=== PATIENT | male | born 1965 | race Caucasian/White ===

== ENCOUNTER 2019-08-08 08:03 | Inpatient (IN) ==
[2019-08-08 08:52] LABS: Alanine Aminotransferase 35 U/L (12-78); Albumin Level 3.4 gm/dl (3.4-5.0); Aspartate Aminotransferase 33 U/L (15-37); BUN Creatinine Ratio 12.5 (10-20); Blood Urea Nitrogen 12 mg/dl (7-18); Calcium 9.2 mg/dl (8.5-10.1); Carbon Dioxide 24 mmol/L (21-32); Chloride 110 mmol/L (98-107); Est GFR (African American) 101.6; Est GFR (Non-African American) 87.7; Glucose 106 mg/dl (70-99); Magnesium 1.9 mg/dl (1.8-2.4); Potassium 3.7 mmol/L (3.5-5.1); Sodium 141 mmol/L (136-145)
[2019-08-08 08:58] LABS: INR 1.2 (0.9-1.1); Prothrombin Time 11.8 Seconds (9.0-12.0)
[2019-08-08 09:03] LABS: Albumin Globulin Ratio 0.9 (0.9-2); Alkaline Phosphatase 120 U/L (45-117); Bilirubin,Total 1.7 mg/dl (0.2-1); Total Protein 7.4 gm/dl (6.4-8.2); Troponin I < 0.015 ng/ml (0-0.045)
--- NOTE | 2019-08-08 09:05 | XRay Report ---
XR chest 1V portable CLINICAL HISTORY: 53 years-old Male presenting with weakness. TECHNIQUE: Portable upright AP view of the chest was obtained. COMPARISON: None. FINDINGS: Cardiomediastinal silhouette normal. No focal opacity. No large effusion or pneumothorax. Osseous str uctures normal. Upper abdomen normal. IMPRESSION: 1. No acute cardiopulmonary disease. ACT 112: Negative or not required by law. Electronically signed by: Jaylon Mccurdy M.D. 08/08/2019 9:04 AM
[2019-08-08 09:28] LABS: Basophils # (auto) 0.03 K/uL (0-0.2); Basophils % (auto) 0.9 %; Eosinophils # (auto) 0.34 K/uL (0-0.5); Eosinophils % (auto) 10.2 %; Hematocrit (blood only) 37.6 % (42-52); Hemoglobin 13.2 g/dL (14.0-18.0); Immature Granulocytes # (auto) 0.01 K/uL (0.00-0.02); Immature Granulocytes % (auto) 0.3 %; Lymphocytes # (auto) 0.92 K/uL (1.2-3.4); Lymphocytes % (auto) 27.5 %; Mean Corpuscular Hemoglobin 33.2 pg (25-34); Mean Corpuscular Hgb Conc 35.1 g/dL (32-36); Mean Corpuscular Volume 94.7 fL (80-100); Mean Platelet Volume 11.3 fL (7.4-10.4); Monocytes # (auto) 0.45 K/uL (0.11-0.59); Monocytes % (auto) 13.5 %; Neutrophils # (auto) 1.59 K/uL (1.4-6.5); Neutrophils % (auto) 47.6 %; Platelet Count 37 K/uL (130-400); Platelet Estimate SIGNIFIC DECREASED (Normal); RBC Morphology Unremarkable; RDW Coefficient of Variation 14.6 % (11.5-14.5); RDW Standard Deviation 50.5 fL (36.4-46.3); Red Blood Count 3.97 M/uL (4.7-6.1); White Blood Count 3.34 K/uL (4.8-10.8)
--- NOTE | 2019-08-08 09:28 | CT Scan Report ---
CT SCAN OF THE BRAIN WITHOUT IV CONTRAST CLINICAL HISTORY: Slurred speech. Encephalopathy. COMPARISON STUDY: No priors. TECHNIQUE: Unenhanced axial CT scan of the brain is performed from the vertex to the skull base. A d ose lowering technique was utilized adhering to the principles of ALARA. CT DOSE: 690.05 mGycm FINDINGS: Brain parenchyma: There is minimal microangiopathic change. There is no hemorrhage, mass effect, or e vidence of acute territorial ischemia by CT criteria. Bhandari-white matter differentiation is preserved. No extra-axial fluid collection is seen. Mineralization is noted in the basal ganglia. Ventricles, sulci, cisterns: Normal in configuration. Intracranial vasculature: There is atherosclerotic calcification of the cavernous carotid and vertebr al arteries. Calvarium: Unremarkable. Sinuses and mastoids: The visualized paranasal sinuses are clear. The mastoid air cells are well pneu matized. Orbits: The bony orbits are grossly intact. IMPRESSION: There is no hemorrhage, mass effect, or evidence of acute territorial ischemia by CT jose bronson. ACT 112: Negative or not required by law. Electronically signed by: Delvis Aguilar M.D. 08/08/2019 9:26 AM
--- NOTE | 2019-08-08 10:38 | Emergency Department Note ---
History of Present Illness General Chief complaint: Stroke/CVA Symptoms Time Seen by Provider: 08/08/19 08:25 History of Present Illness 53-year-old male inmate from [facility] who presents to the emergency department with security for evaluation of confusion for several days, and slurred speech since awakening this morning. The patient reports that he has difficulty with formation of thoughts and speech. The patient has had this before in the past. The patient reports a history of hepatitis and cirrhosis secondary to alcohol abuse. He reports that his ammonia level has also been elevated, and has been t reated with lactulose. He reports that his last lab work showed that his ammonia levels were low. The patient denies any other recent infections, fevers or chills. The patient denies any recent head injuries. The patient reports that he has never had to be hospitalized for hepatitis or encephalitis. The patient currently denies any headache, chest pain or shortness of breath. Home Medications Home Medications Medication Instructions Recorded Confirmed Type calcium carbonate [Tums] 400 mg PO BID PRN 08/08/19 08/08/19 History furosemide [Lasix] 40 mg PO QAM 08/08/19 08/08/19 History hydroxyzine HCl 25 mg PO TID PRN 08/08/19 08/08/19 History lactulose 20 g PO BID 08/08/19 08/08/19 History pantoprazole 40 mg PO QAM 08/08/19 08/08/19 History sofosbuvir-velpatasvir [Epclusa] 1 tab PO DAILY 08/08/19 08/08/19 History spironolactone 100 mg PO QAM 08/08/19 08/08/19 History tenofovir alafenamide [Vemlidy] 25 mg PO QAM 08/08/19 08/08/19 History Allergies Allergy/AdvReac Type Severity Reaction Status Date / Time NSAIDS (Non-Steroidal AdvReac Unknown Unknown Unverified 08/08/19 08:35 Anti-Inflamma Past Med/Surg History Medical History Alcohol use disorder, severe, dependence Anxiety Ascites GERD (gastroesophageal reflux disease) Hepatitis B virus infection Hepatitis C virus Hypertension Inguinal hernia Insomnia disorder Liver cirrhosis Neuropathy Nicotine dependence Portal hypertension Thrombocytopenia Surgical History History of hand surgery Right hand surgery for fracture and tendon repair Family History Mother Coronary heart disease Other Cancer Social History Preferred Language: [place] Communication Ability: Effective Dial Marker Required: No Beliefs That Will Affect Care: None Current Living Situation: Other Current Living Situation Comment: lives at [facility], legal guardian Other Information That Helps Us Care for You: No Feels Safe at Home: Yes Safety Concerns: Feels Safe At This Time Smoking Status: Former smoker Tobacco Type: cigarettes ; Do You Dip or Chew Tobacco: No ; Smoking End Date: 2017 ; Second Hand Exposure: No ; Tobacco C essation Education Requested by Patient: No Hx Alcohol Use: Yes (Quit 2018. Did drink 12 beers on the weekends) Hx Substance Use: Yes (Last used 14 years ago. Cocaine) substance use type: arguelles s not use Review of Systems Review of systems was limited secondary to difficulty with speech. Physical Exam Vital Signs Vital Signs - 24 hr 08/08/19 08:09 08/08/19 08:15 08/08/19 08:17 Temperature 37.1 C Temperature Source Oral Pulse Rate 73 70 75 Pulse Rate from SpO2 Sensor Respiratory Rate 18 17 12 Respiratory Effort / Characteristics Non-Labored Respiratory Depth Normal Blood Pressure 156/100 H 156/100 H Blood Pressure Mean 115 118 Blood Pressure Position Lying Pulse Oximetry 99 Oxygen Delivery Method Room Air Sepsis Recent Fever Within 48 Hours No Sepsis Action Taken by Nursing No Action Required 08/08/19 08:30 08/08/19 08:31 08/08/19 08:36 Temperature Temperature Source Pulse Rate 68 69 Pulse Rate from SpO2 Sensor 68 68 Respiratory Rate 15 16 Respiratory Effort / Characteristics Respiratory Depth Blood Pressure 149/97 H Blood Pressure Mean 118 Blood Pressure Position Pulse Oximetry 100 100 99 Oxygen Delivery Method Room Air Sepsis Recent Fever Within 48 Hours Sepsis Action Taken by Nursing 08/08/19 09:00 08/08/19 09:01 08/08/19 09:30 Temperature Temperature Source Pulse Rate 64 65 65 Pulse Rate from SpO2 Sensor 63 64 65 Respiratory Rate 17 22 16 Respiratory Effort / Characteristics Respiratory Depth Blood Pressure 156/104 H 120/78 Blood Pressure Mean 123 95 Blood Pressure Position Pulse Oximetry 99 99 100 Oxygen Delivery Method Sepsis Recent Fever Within 48 Hours Sepsis Action Taken by Nursing 08/08/19 10:00 08/08/19 10:30 08/08/19 11:00 Temperature Temperature Source Pulse Rate 67 67 73 Pulse Rate from SpO2 Sensor 67 Respiratory Rate 17 17 16 Respiratory Effort / Characteristics Respiratory Depth Blood Pressure 103/64 134/81 139/100 Blood Pressure Mean 69 88 105 Blood Pressure Position Pulse Oximetry 99 99 99 Oxygen Delivery Method Room Air Room Air Room Air Sepsis Recent Fever Within 48 Hours Sepsis Action Taken by Nursing CONSTITUTIONAL: Healthy and well nourished. Alert and oriented X 3. GCS 15. Patient does not appear in any acute distress. HEENT: Normocephalic, atraumatic. Pupils equal, round and reactive. There is a nares are clear. Examination of the oropharynx does not show any tonsillar hypertrophy or exudates. NECK: Full active range of motion without discomfort. No JVD or carotid bruits. LYMPHATICS: No cervical chain adenopathy. RESPIRATORY: Clear to auscultation bilaterally with no wheezing, crackles, r honchi or stridor. CARDIOVASCULAR: Regular rate and rhythm with no murmurs, rubs or gallops. GASTROINTESTINAL: Bowel sounds present in all quadrants. Patient has minimal fluid wave. No obvious hepatosplenomegaly. No rigidity, guarding or rebound. MUSCULOSKELETAL: Full range of motion of all joints without discomfort. INTEGUMENTARY: No rash or other significant dermatologic conditions noted. HEMATOLOGIC: No ecchymosis or petechiae. PSYCHIATRIC: Positive affect. NEUROLOGIC: No focal neurologic deficits noted. Course Course Patient history and physical exam were performed. Nurse's notes were reviewed. Vital signs were reviewed, showing an initial blood pressure of 156/100. Patient is otherwise afebrile, not tachycardic or tachypneic. O2 saturation on room air was also normal. Review of medical records does not show any prior admissions to our facility. IV access was established, and labs were drawn. An emergent noncontrast CT of the head was performed and did not show any concerning findings. ECG was performed and was normal. The patient was placed on cardiac catheterization technician while in the emergency department. Review of labs showed a leukopenia and platelet count of 37,000. INR is 1.2. CMP shows mildly elevated total bilirubin of 1.7 and alkaline phosphatase of 120. Ammonia level is slightly elevated at 36.8. TSH is normal. Urinalysis was not consistent with infection. Urine drug screen was negative. Findings were discussed with Dr. Scherer, ED attending physician, who recommended hospitalist consultation. Findings were discussed with the hospitalist service, who came to the emergency department for further reevaluation and admission. Please see their dictations for further treatment and final disposition. Medical Decision Making Medical Records Attestation: I reviewed the patient's medical records. Home Medications Current Medication List: was personally reviewed by me Laboratory Data Attestation: I reviewed the patient's lab results. Result diagrams: 08/08/19 08:21 08/08/19 08:21 Lab Results 08/08/19 08/08/19 08/08/19 Range/Units 08:21 08:21 08:21 WBC (4.8-10.8) K/uL RBC (4.7-6.1) M/uL Hgb (14.0-18.0) g/dL Hct (42-52) % MCV (80-100) fL MCH (25-34) pg MCHC (32-36) g/dL RDW Std Deviation (36.4-46.3) fL RDW Coeff of Satya (11.5-14.5) % Plt Count (130-400) K/uL MPV (7.4-10.4) fL Immature Gran % (Auto) % Neut % (Auto) % Lymph % (Auto) % [place] % (Auto) % Eos % (Auto) % Baso % (Auto) % Immature Gran # (Auto) (0.00-0.02) K/uL Neut # (Auto) (1.4-6.5) K/uL Lymph # (Auto) (1.2-3.4) K/uL [place] # (Auto) (0.11-0.59) K/uL Eos # (Auto) (0-0.5) K/uL Baso # (Auto) (0-0.2) K/uL Platelet Estimate (Normal) RBC Morphology PT 11.8 (9.0-12.0) Seconds INR 1.2 H (0.9-1.1) Sodium 141 (136-145) mmol/L Potassium 3.7 (3.5-5.1) mmol/L Chloride 110 H (98-107) mmol/L Carbon Dioxide 24 (21-32) mmol/L Anion Gap 7.0 (3-11) BUN 12 (7-18) mg/dl Creatinine 0.98 (0.6-1.4) mg/dl Est Cr Clr Drug Dosing 90.0 ml/min Est GFR ( Amer) 101.6 Est GFR (Non-Af Amer) 87.7 BUN/Creatinine Ratio 12.5 (10-20) Glucose 106 H (70-99) mg/dl POC Glucose (70-99) mg/dl Lactate (0.4-2.0) mmol/L Calcium 9.2 (8.5-10.1) mg/dl Magnesium 1.9 (1.8-2.4) mg/dl Total Bilirubin 1.7 H (0.2-1) mg/dl AST 33 (15-37) U/L ALT 35 (12-78) U/L Alkaline Phosphatase 120 H (45-117) U/L Ammonia 36.8 H (11-32) umol/L Troponin I < 0.015 (0-0.045) ng/ml Total Protein 7.4 (6.4-8.2) gm/dl Albumin 3.4 (3.4-5.0) gm/dl Globulin 4.0 (2.5-4.0) gm/dl Albumin/Globulin Ratio 0.9 (0.9-2) TSH 3.290 (0.300-4.500) uIu/ml 08/08/19 08/08/19 08/08/19 Range/Units 08:21 08:23 08:48 WBC 3.34 L (4.8-10.8) K/uL RBC 3.97 L (4.7-6.1) M/uL Hgb 13.2 L (14.0-18.0) g/dL Hct 37.6 L (42-52) % MCV 94.7 (80-100) fL MCH 33.2 (25-34) pg MCHC 35.1 (32-36) g/dL RDW Std Deviation 50.5 H (36.4-46.3) fL RDW Coeff of Satya 14.6 H (11.5-14.5) % Plt Count 37 L (130-400) K/uL MPV 11.3 H (7.4-10.4) fL Immature Gran % (Auto) 0.3 % Neut % (Auto) 47.6 % Lymph % (Auto) 27.5 % [place] % (Auto) 13.5 % Eos % (Auto) 10.2 % Baso % (Auto) 0.9 % Immature Gran # (Auto) 0.01 (0.00-0.02) K/uL Neut # (Auto) 1.59 (1.4-6.5) K/uL Lymph # (Auto) 0.92 L (1.2-3.4) K/uL [place] # (Auto) 0.45 (0.11-0.59) K/uL Eos # (Auto) 0.34 (0-0.5) K/uL Baso # (Auto) 0.03 (0-0.2) K/uL Platelet Estimate SIGNIFIC DECREASED (Normal) RBC Morphology Unremarkable PT (9.0-12.0) Seconds INR (0.9-1.1) Sodium (136-145) mmol/L Potassium (3.5-5.1) mmol/L Chloride (98-107) mmol/L Carbon Dioxide (21-32) mmol/L Anion Gap (3-11) BUN (7-18) mg/dl Creatinine (0.6-1.4) mg/dl Est Cr Clr Drug Dosing ml/min Est GFR ( Amer) Est GFR (Non-Af Amer) BUN/Creatinine Ratio (10-20) Glucose (70-99) mg/dl POC Glucose 101 H (70-99) mg/dl Lactate 1.4 (0.4-2.0) mmol/L Calcium (8.5-10.1) mg/dl Magnesium (1.8-2.4) mg/dl Total Bilirubin (0.2-1) mg/dl AST (15-37) U/L ALT (12-78) U/L Alkaline Phosphatase (45-117) U/L Ammonia (11-32) umol/L Troponin I (0-0.045) ng/ml Total Protein (6.4-8.2) gm/dl Albumin (3.4-5.0) gm/dl Globulin (2.5-4.0) gm/dl Albumin/Globulin Ratio (0.9-2) TSH (0.300-4.500) uIu/ml Imaging Data Attestation: I personally reviewed and interpreted this imaging study as fo llows: My Impression: My interpretation of a noncontrast CT of the head does not show evidence for intracranial bleed, stroke pattern or other concerning findings. My interpretation of reportable chest x-ray does not show any consolidations, pneumothorax or cardiomegaly. Radiologist reports were reviewed. Radiologist's Impression: CT SCAN OF THE BRAIN WITHOUT IV CONTRAST CLINICAL HISTORY: Slurred speech. Encephalopathy. COMPARISON STUDY: No priors. TECHNIQUE: Unenhanced axial CT scan of the brain is performed from the vertex to the skull base. A dose lowering technique was utilized adhering to the prin ciples of SHARON. CT DOSE: 690.05 mGycm FINDINGS: Brain parenchyma: There is minimal microangiopathic change. There is no hemorrhage, mass effect, or evidence of acute territorial ischemia by CT cri teria. Bhandari-white matter differentiation is preserved. No extra-axial fluid collection is seen. Mineralization is noted in the basal ganglia. Ventricles, sulci, cisterns: Normal in configuration. Intracranial vasculature: There is atherosclerotic calcification of the cavernous carotid and vertebral arteries. Calvarium: Unremarkable. Sinuses and mastoids: The visualized paranasal sinuses are clear. The mastoid air cells are well pneumatized. Orbits: The bony orbits are grossly intact. IMPRESSION: There is no hemorrhage, mass effect, or evidence of acute territorial ischemia by CT criteria. XR chest 1V portable CLINICAL HISTORY: 53 years-old Male presenting with weakness. TECHNIQUE: Portable upright AP view of the chest was obtained. COMPARISON: None. FINDINGS: Cardiomediastinal silhouette normal. No focal opacity. No large effusion or pneumothorax. Osseous structures normal. Upper abdomen normal. IMPRESSION: 1. No acute cardiopulmonary disease. ECG Data Attestation: I personally reviewed and interpreted this ECG as follows: Indication: + other (Strokelike symptoms) Rate (beats per minute): 64 Rhythm: + normal sinus ECG Intervals/blocks: + Normal QRS, + Normal QT and + Normal NC ECG [place]: + Normal ECG ST segments: + Normal ST segments Comparison ECG Date: no prior available Blood Pressure Blood Pressure Findings: Normal blood pressure MDM Narrative Cardiac monitoring: An order was placed for continuous cardiac monitoring. The monitor shows a rate of 64 bpm with a normal sinus rhythm. shelter monitor history was reviewed throughout the evaluation, and no dysrhythmias were noted. Patient presents to the emergency department with strokelike symptoms. He is work-up today is not consistent with acute hemorrhagic stroke. TIA is also a consideration. It is noted that the patient does have a prior history of he patic cirrhosis and portal hypertension. It is also noted that the patient has a history of chronic thrombocytopenia, with prior records not available for lab review. At this point, I do not suspect hepatic encephalopathy as the patient does have only a mildly elevated ammonia level. I also do not suspect sepsis. Chest x-ray does not show any evidence for pneumonia or pneumothorax. Suspect that MRI will be warranted given the patient's symptoms. Impression & Plan Confusion, Liver cirrhosis, Thrombocytopenia Discharge Plan Visit Data *Final* Discharge Date/Time: 08/08/19 11:31 Chief Complaint: Stroke/CVA Symptoms ED Provider: Althea Scherer ED Midlevel Provider: Yury Douglas Discharge Problem: Confusion, Liver cirrhosis, Thrombocytopenia Patient Disposition: Admitted As Inpatient Discharge Instructions Interventions: ED Discharge Assessment Last Done: 08/08/19 11:31 Discharge Problem: Liver cirrhosis Qualifiers: Hepatic cirrhosis type: alcoholic cirrhosis Ascites presence: with ascites Qualified Code(s): K70.31 - Alcoholic cirrhosis of liver with ascites
--- NOTE | 2019-08-08 11:09 | Electrocardiogram Report ---
Test Reason : Blood Pressure : / mmHG Vent. Rate : 064 BPM Atrial Rate : 064 BPM P-R Int : 136 ms QRS Dur : 090 ms QT Int : 452 ms P-R-T Axes : 052 052 047 degrees QTc Int : 466 ms Normal sinus rhythm Normal ECG No previous ECGs available Confirmed by Abdulkadir Verduzco ([id number]) on 08/08/2019 11:09:08 AM Referred By: [facility] Confirmed By:Abdulkadir Verduzco
--- NOTE | 2019-08-08 11:28 | History & Physical Report ---
Date of Service August 08, 2019 Assessment & Plan (1) Confusion: Pt is 53 y/o M with PMH hepatitis C, Hepatitis B, cirrhosis, HTN, chronic thrombocytopenia presented to ER from [facility] for increased confusion. Reported intermittent confusion and elevated ammonia levels over the past month and treated with lactulose. Reported increased confusion x couple days, this am with noted trouble with word finding and slurred speech Upon ER arrival it was noted patient had some slowed answering to questions however improved during ER course In ER afebrile, P: 75, R: 12, BP: 156/100 down to 120/78, 99% on RA. No leukocytosis, no significant electrolyte abnormality, Ammonia: 36.8, UA not consistent with infection CT Head: no acute findings DDX: hepatic encephalopathy, TIA, stroke -Tele to monitor for arrhythmias -Neuro checks -Urine tox pending -MRI brain r/o stroke -If MRI positive for stroke to add echo, US carotids, neurology consult -Treat cirrhosis as below (2) Hepatitis C virus: (3) Hepatitis B virus infection: (4) Liver cirrhosis: Chronic thrombocytopenia. H/H: 13/37, Plt: 37, INR: 1.2. T.Bili: 1.7, AST: 33, ALT: 35, Alk Phos: 120, Ammonia: 36.8 -Pt Reports had normal viral load 2 weeks ago when checked at [facility] -4 weeks ago finished 12 week course of Epclusa -US abdomen to r/o ascites -Continue lactulose BID, lasix, spironolactone, Vemlidy -Monitor CBC, CMP, Liver enzymes, ammonia (5) Hypertension: Variable BP in ER -Continue Lasix, spironolactone -Monitor BP, may need to consider adding additional BP agent (6) GERD (gastroesophageal reflux disease): -Continue PPI DVT Prophylaxis -SCDs admit med tele for observation Full Code as per discussion with pt At [facility] for routine care Pt was seen and care coordinated with Dr Cullen. See addendum History of Present Illness Chief Complaint: Confusion Primary Care Provider: [facility] Pt is 53 y/o M with PMH hepatitis C, Hepatitis B, cirrhosis, HTN, chronic thrombocytopenia presented to ER from [facility] for confusion. Patient reports history of intermittent confusion and elevated ammonia levels over the past month and reports has been on lactulose with some improvement. Patient reports has two BMs daily. He reports that he seemed to have more confusion the past couple of days. It is reported the patient with trouble with word finding and slurred speech this a.m. approximately 8 AM and had reported BP of 190/130 and was given Lopressor 25 mg p.o. at the [facility]. Upon ER arrival it was noted patient had some slowed answering to questions however reports that seems to have improved during his time in ER. Pt c/o frontal PIZANO for weeks with some nasal congestion. Denies any increased PIZANO. Patient reports has had dizziness with walking and staggered gait as well as blurry vision for several months. He reports chronic paresthesias bilateral feet for years. Also reports chronic intermittent epistaxis. Denies any chest pain, shortness of breath. Reports chronic abdominal distention and BLE edema. He feels like his abdominal distention may be slightly less since being on diuretics. Patient was on Epclusa he reports for 12 week course and finished approximately 4 weeks ago. Currently on Vemlidy. History cocaine use, reports last used 14 years ago. Denies history of IV drug abuse. Has tattoos. Patient reports female sexual partner in past had hepatitis C. Denies fever/chills, diaphoresis, N/V/C, syncope, neck pain, orthopnea, palpitations, cough, sore throat, choking, otalgia, extremity weakness, rashes, urinary symptoms. Allergies Allergy/AdvReac Type Severity Reaction Status Date / Time NSAIDS (Non-Steroidal AdvReac Unknown Unknown Unverified 08/08/19 08:35 Anti-Inflamma Home Medications Home Medications Medication Instructions Recorded Confirmed Type calcium carbonate [Tums] 400 mg PO BID PRN 08/08/19 08/08/19 History furosemide [Lasix] 40 mg PO QAM 08/08/19 08/08/19 History hydroxyzine HCl 25 mg PO TID PRN 08/08/19 08/08/19 History lactulose 20 g PO BID 08/08/19 08/08/19 History pantoprazole 40 mg PO QAM 08/08/19 08/08/19 History sofosbuvir-velpatasvir [Epclusa] 1 tab PO DAILY 08/08/19 08/08/19 History spironolactone 100 mg PO QAM 08/08/19 08/08/19 History tenofovir alafenamide [Vemlidy] 25 mg PO QAM 08/08/19 08/08/19 History Past Med/Surg History Medical History (Updated 08/08/19 @ 11:36 by Cecilia Griffin PA-C) Alcohol use disorder, severe, dependence Anxiety Ascites GERD (gastroesophageal reflux disease) Hepatitis B virus infection Hepatitis C virus Hypertension Inguinal hernia Insomnia disorder Liver cirrhosis Neuropathy Nicotine dependence Portal hypertension Thrombocytopenia Surgical History (Updated 08/08/19 @ 11:31 by Cecilia Griffin PA-C) History of hand surgery Right hand surgery for fracture and tendon repair Family History (Updated 08/08/19 @ 11:30 by Cecilia Griffin PA-C) Mother Coronary heart disease Other Cancer Social History (Updated 08/08/19 @ 11:29 by Cecilia Griffin PA-C) Preferred Language: Bahraini Communication Ability: Effective Valuation Manager Required: No Beliefs That Will Affect Care: None Current Living Situation: Other Current Living Situation Comment: lives at [facility], legal guardian Other Information That Helps Us Care for You: No Feels Safe at Home: Yes Safety Concerns: Feels Safe At This Time Smoking Status: Former smoker Tobacco Type: cigarettes ; Do You Dip or Chew Tobacco: No ; Smoking End Date: 2017 ; Second Hand Exposure: No ; Tobacco Cessation Education Requested by Patient: No Hx Alcohol Use: Yes (Quit 2019. Did drink 12 beers on the weekends) Hx Substance Use: Yes (Last used 14 years ago. Cocaine) substance use type: does not use Review of Systems Review of Systems: All systems reviewed & are unremarkable except as noted in HPI & below Physical Exam Physical Exam: General: no acute distress, WDWN Head: normocephalic, atraumatic Eyes: PERRL, EOM's intact, conjunctiva non-injected, anicteric ENT: normal inspection external ears, nose, mucous membranes moist Neck: supple, trachea midline Lungs: clear, no respiratory distress, no wheezing/rhonchi/rales CV: RRR, no murmur, 1+ pretibial edema Abd: normal BS, soft, distended, non-tender to palpation Ext: no cyanosis, no calf tenderness; +mild asterixis Neuro: A&O x 3, normal affect, no slurred speech, some intermittent slowed responses to remembering his medications, Facial sensation is intact and symmetric, face is strong and symmetric, Hearing grossly intact, Soft palate elevates symmetrically, Shoulder shrug intact, Tongue is midline, normal movement, no fasciculations, strength 5/5 throughout, slow finger to nose testing Skin: warm, dry Results & Data Vital Signs (Past 12 Hours) Vital Signs Temp Pulse Resp BP Pulse Ox 08/08/19 11:00 73 16 139/100 99 08/08/19 10:30 67 17 134/81 99 08/08/19 10:00 67 17 103/64 99 08/08/19 09:30 65 16 120/78 100 08/08/19 09:01 65 22 99 08/08/19 09:00 64 17 156/104 H 99 08/08/19 08:36 99 08/08/19 08:31 69 16 100 08/08/19 08:30 68 15 149/97 H 100 08/08/19 08:17 37.1 C 75 12 156/100 H 99 08/08/19 08:15 70 17 08/08/19 08:09 73 18 156/100 H Laboratory Results Short CBC 08/08/19 Range/Units 08:21 WBC 3.34 L (4.8-10.8) K/uL Hgb 13.2 L (14.0-18.0) g/dL Hct 37.6 L (42-52) % Plt Count 37 L (130-400) K/uL BMP 08/08/19 08:21 Sodium 141 Potassium 3.7 Chloride 110 H Carbon Dioxide 24 BUN 12 Creatinine 0.98 Glucose 106 H Calcium 9.2 Cardiac Enzymes 08/08/19 Range/Units 08:21 Troponin I < 0.015 (0-0.045) ng/ml Liver Function 08/08/19 Range/Units 08:21 Total Bilirubin 1.7 H (0.2-1) mg/dl AST 33 (15-37) U/L ALT 35 (12-78) U/L Alkaline Phosphatase 120 H (45-117) U/L Albumin 3.4 (3.4-5.0) gm/dl Urine 08/08/19 Range/Units 11:17 Urine Color Dark Yellow Urine Appearance Cloudy A (Clear) Urine pH 8.0 H (4.5-7.5) Ur Specific [place] 1.019 (1.000-1.030) Urine Protein Negative (Negative) Urine Glucose (UA) Negative (Negative) Diagnostic Findings CT HEAD: IMPRESSION: There is no hemorrhage, mass effect, or evidence of acute territorial ischemia by CT criteria. CXR: IMPRESSION: 1. No acute cardiopulmonary disease. ECG Rate (beats per minute): 64 Rhythm: sinus rhythm Code Status & VTE Plan VTE Prophylaxis Plan VTE Prophylaxis will be ordered: Yes Supervising Physician Co-Signing Physician Notes Attending addendum Patient is seen and examined in medical telemetry unit He has been stable with IVC, hepatitis B and cirrhosis was admitted with acute confusion 1 of for some time Has been feeling a little bit better since admission Denies any significant symptoms during my examination On examination Lying in bed comfortably and looks depressed Hemodynamically stable Chest clear to auscultate bilaterally- Heart-S1-S2, regular Abdomen distended-, soft, nontender, mild to moderate ascites bowel sounds present Extremities-1+ edema bilaterally CHIEF OF SERVICE-alert, awake and oriented Generally weak Hepatic flap present Admission labs and imaging studies reviewed Cirrhosis with hepatitis B and complete treatment of her EDC Has hepatic encephalopathy Doubt any TIA/stroke Agree with assessment plan as outlined above by SHAHLA Norris Dr
[2019-08-08 11:30] LABS: Appearance Urine Cloudy (Clear); Bacteria Urine Automated Negative (Negative); Bilirubin Urine Negative (Negative); Blood Urine Negative (Negative); Color Urine Dark Yellow; Epithelial Cell Urine Auto 0-5 /lpf (0-5); Glucose Urine UA Negative (Negative); Ketones Urine Negative (Negative); Leukocyte Esterase Urine Trace (Negative); Nitrite Urine Negative (Negative); Protein Urine Negative (Negative); RBC Urine Automated 0-4 /hpf (0-4); Specific Gravity Urine 1.019 (1.000-1.030); Urobilinogen Urine Positive (Negative)
[2019-08-08] MEDS ORDERED: ACETAMINOPHEN 325 MG TAB PO PRN (13:47)
[2019-08-08] MEDS ORDERED: ONDANSETRON INJ 2 MG/ML 2 ML VIAL IV PRN (13:47)
[2019-08-08 14:31] LABS: Amphetamines+Metham, Urine Neg (Neg); Barbiturates, Urine Neg (Neg); Benzodiazepine, Urine Neg (Neg); Cocaine, Urine Neg (Neg); MDMA (Ecstacy), Urine Neg (Neg); Methadone, Urine Neg (Neg); Opiate, Urine Neg (Neg); Phencyclidine, Urine Neg (Neg)
--- NOTE | 2019-08-08 16:54 | Ultrasound Report ---
US abdomen ltd ascites CLINICAL HISTORY: h/o cirrhosis. Assess for ascites. COMPARISON STUDY: None. FINDINGS: Transabdominal scanning of the abdomen was performed with telemarketing representative images submitted. No fluid identified within the abdomen. IMPRESSION: No ascites. ACT 112: Negative or not required by law. Electronically signed by: Jer Marin M.D. 08/08/2019 4:53 PM
--- NOTE | 2019-08-08 17:06 | Magnetic Resonance Report ---
MRI OF THE BRAIN WITHOUT CONTRAST CLINICAL HISTORY: confusion, r/o stroke COMPARISON STUDY: Head CT August 08, 2019. TECHNIQUE: Utilizing a 1.5 Agustina magnet and dedicated coil, multiplanar, multiecho imaging of the bra in was performed without IV contrast. FINDINGS: There are no foci of restricted diffusion. No acute intracranial hemorrhage, midline shift or mass effect is present. Brain volume is normal. Ventricular system is normal. Basilar cisterns are patent. There are no extra-axial collections. Scattered T2 hyperintense foci suggest mild small vess el disease. Increased T1 signal within the basal ganglia is likely due to mineralization. No intracra nial masses are identified on this unenhanced exam. Calvarial signal is normal. Orbits are unremarkab le. IMPRESSION: 1. No acute intracranial findings. 2. Mild white matter T2 hyperintense foci which suggest small vessel disease. ACT 112: Negative or not required by law. Electronically signed by: Perry Jeong M.D. 08/08/2019 5:05 PM
[2019-08-08] MEDS ORDERED: TRAMADOL HCL 50 MG TABLET PO PRN (18:07)
[2019-08-08] MEDS: LACTULOSE SYRUP 20 GM/30 ML UDC PO SCH (21:21)
[2019-08-09 08:25] LABS: Hematocrit (blood only) 37.7 % (42-52); Hemoglobin 13.1 g/dL (14.0-18.0); Mean Corpuscular Hemoglobin 33.1 pg (25-34); Mean Corpuscular Hgb Conc 34.7 g/dL (32-36); Mean Corpuscular Volume 95.2 fL (80-100); RDW Coefficient of Variation 14.8 % (11.5-14.5); RDW Standard Deviation 51.1 fL (36.4-46.3); Red Blood Count 3.96 M/uL (4.7-6.1); White Blood Count 4.56 K/uL (4.8-10.8)
[2019-08-09 08:26] LABS: Mean Platelet Volume 11.5 fL (7.4-10.4); Platelet Count 46 K/uL (130-400)
[2019-08-09] MEDS: LACTULOSE SYRUP 20 GM/30 ML UDC PO SCH (08:27)
[2019-08-09 09:03] LABS: BUN Creatinine Ratio 17.5 (10-20); Calcium 8.8 mg/dl (8.5-10.1); Creatinine Clr Calc Pharmacy 90.9 ml/min; Est GFR (African American) 102.9; Est GFR (Non-African American) 88.8
[2019-08-09 09:05] LABS: Albumin Globulin Ratio 0.8 (0.9-2); Bilirubin Direct 0.5 mg/dl (0-0.2); Bilirubin,Total 1.8 mg/dl (0.2-1); Globulin 3.8 gm/dl (2.5-4.0); Total Protein 6.8 gm/dl (6.4-8.2)
[2019-08-09] MEDS: PANTOprazole 40 MG TAB PO SCH (09:34)
[2019-08-09] MEDS: FUROSEMIDE 40 MG TAB PO SCH (09:34)
[2019-08-09] MEDS: SPIRONOLACTONE 100 MG TAB PO SCH (09:35)
[2019-08-09 09:46] LABS: Estimated Average Glucose 82 mg/dl; Hemoglobin A1C 4.5 % (4.5-5.6)
--- NOTE | 2019-08-09 12:46 | Hospitalist Progress Note ---
Date of Service August 09, 2019 Assessment & Plan (1) Confusion: Pt is 53 y/o M with PMH hepatitis C, Hepatitis B, cirrhosis, HTN, chronic thrombocytopenia presented to ER from [facility] for increased confusion. Reported intermittent confusion and elevated ammonia levels over the past month and treated with lactulose. Reported increased confusion x couple days, this am with noted trouble with word finding and slurred speech Upon ER arrival it was noted patient had some slowed answering to questions however improved during ER course In ER afebrile, P: 75, R: 12, BP: 156/100 down to 120/78, 99% on RA. No leukocytosis, no significant electrolyte abnormality, Ammonia: 36.8, UA not consistent with infection CT Head: no acute findings DDX: hepatic encephalopathy, TIA, stroke -Tele to monitor for arrhythmias -Neuro checks -Urine tox pending -MRI brain r/o stroke -If MRI positive for stroke to add echo, US carotids, neurology consult -Treat cirrhosis as below (2) Hepatitis C virus: (3) Hepatitis B virus infection: (4) Liver cirrhosis: Chronic thrombocytopenia. Pancytopenia H/H: 13/37, Plt: 37, INR: 1.2. T.Bili: 1.7, AST: 33, ALT: 35, Alk Phos: 120, Ammonia: 36.8 -Pt Reports had normal viral load 2 weeks ago when checked at [facility] -4 weeks ago finished 12 week course of Epclusa -US abdomen neg for ascites -Continue lactulose, lasix, spironolactone, Vemlidy, NH3 went from 38 to 88, Lactulose increased -Monitor CBC, CMP, Liver enzymes, ammonia (5) Hypertension: Variable BP in ER -Continue Lasix, spironolactone -Monitor BP, may need to consider adding additional BP agent (6) GERD (gastroesophageal reflux disease): -Continue PPI DVT Prophylaxis -SCDs Full Code as per discussion with pt Labs checked ROS-No Headache, No Visual Changes, No Nausea, No Vomiting, No Fever, No Chills, No Neck Pain or Stiffness, No Chest Pain, No Palpitations, No SOB, No ROLDAN, No Cough, No Sputum, No Wheezing, No Abdominal Pain, No Diarrhea, No Hematemesis, No Hemoptysis, No Unexpected Weight Loss, No Flank pain, No Melena, No Hematochezia, No Frequency, No Urgency, No Burning, No Hematuria, No Rashes, No Diaphoresis. Appetite is Normal Physical Exam Gen-AAO x 3, NAD, Afebrile Head-NCAT, EOMI, PERRLA, Anicteric Sclera, No Posterior Pharyngeal Erythema Neck-Supple, No JVD, No Thyromegaly, No Masses, No LAD, No Bruits Lungs-Clear to Auscultation Bilaterally, No Rales, No Rhonchi, No Wheezing, No Crepitus Chest-No S4, +S1, +S2, No S3, No Murmurs, No Rubs, No Gallops, No Ectopy Abdomen-Soft, Bowel Sounds Present, Non Tender, Non Distended, No Hepatomegaly, No Splenomegaly, No Palpable Masses, No Rebound, No Rigidity, No Guarding Musculoskeletal-Full Range of Motion Bilaterally, No CVAT Extremities-No Cyanosis, No Clubbing, No Edema Nuero-Cranial Nerves II-XII grossly intact, Motor WNL, DTRs WNL, Strength WNL, Non Focal Psych-Normal Mood Admission and Anticipated Discharge Date Admission Date: August 08, 2019 Results & Data ([facility]) Vital Signs (Past 12 Hours) Vital Signs Temp Pulse Pulse Resp BP Pulse Ox 08/09/19 11:17 36.9 C 75 18 148/74 H 98 08/09/19 07:15 36.8 C 71 18 124/71 97 08/09/19 07:10 72 08/09/19 04:43 36.9 C 71 19 123/76 96 (1) Liver cirrhosis Ascites presence: with ascites Hepatic cirrhosis type: alcoholic cirrhosis Qualified Code(s): K70.31 - Alcoholic cirrhosis of liver with ascites
[2019-08-09] MEDS: LACTULOSE SYRUP 30 GM/45 ML UDP PO SCH ×3 (13:00→21:55)
[2019-08-09] MEDS ORDERED: CALCIUM CARBONATE 500 MG CHEWABLE TAB PO PRN (13:20)
[2019-08-09] MEDS ORDERED: [UNRECOGNIZED DRUG - REMARK] SCH (13:30)
[2019-08-10 07:22] LABS: Hematocrit (blood only) 34.6 % (42-52); Hemoglobin 12.3 g/dL (14.0-18.0); Mean Corpuscular Hemoglobin 33.5 pg (25-34); Mean Corpuscular Hgb Conc 35.5 g/dL (32-36); Mean Corpuscular Volume 94.3 fL (80-100); RDW Coefficient of Variation 14.5 % (11.5-14.5); RDW Standard Deviation 49.7 fL (36.4-46.3); Red Blood Count 3.67 M/uL (4.7-6.1)
[2019-08-10 07:29] LABS: Mean Platelet Volume 11.7 fL (7.4-10.4); Platelet Count 32 K/uL (130-400)
[2019-08-10 07:54] LABS: Albumin Level 2.8 gm/dl (3.4-5.0); Calcium 8.3 mg/dl (8.5-10.1); Creatinine Clr Calc Pharmacy 103.8 ml/min; Est GFR (African American) 115.3; Est GFR (Non-African American) 99.5
[2019-08-10 07:57] LABS: Albumin Globulin Ratio 0.8 (0.9-2); Bilirubin,Total 1.3 mg/dl (0.2-1); Globulin 3.7 gm/dl (2.5-4.0); Total Protein 6.5 gm/dl (6.4-8.2)
[2019-08-10] MEDS: PANTOprazole 40 MG TAB PO SCH (09:23)
[2019-08-10] MEDS: LACTULOSE SYRUP 30 GM/45 ML UDP PO SCH ×4 (09:24→19:49)
[2019-08-10] MEDS: FUROSEMIDE 40 MG TAB PO SCH (09:24)
[2019-08-10] MEDS: SPIRONOLACTONE 100 MG TAB PO SCH (09:24)
--- NOTE | 2019-08-10 19:16 | Hospitalist Progress Note ---
Date of Service August 10, 2019 Assessment & Plan (1) Hepatic encephalopathy: resolved with lactulose. Cont to titrate lactulose for goal 2-3 BMs daily to keep ammonia levels down. (2) Liver cirrhosis: US abdomen negative for ascites. Cont medical management with diuretic therapy. Cont [id number] screening for HCC. (3) Hepatitis C virus: cont antiviral therapy (4) Hepatitis B virus infection: cont antiviral therapy (5) GERD (gastroesophageal reflux disease): PPI (6) Thrombocytopenia: chronic 2/2 liver disease (7) DVT prophylaxis: SCDs, chemoprophy contraindicated in setting of thrombocytopenia Full Code Dispo-to [facility] in [place] [facility] Hospitalist Admission and Anticipated Discharge Date Admission Date: August 09, 2019 Subjective Cirrhotic patient on antiviral therapy for hepatitis presented with hepatic encephalopathy. Today he is oriented and clear. He reports at least 3 BMs today with lactulsoe use. We reviewed the need for lactulose to aid him in having 2-3 BMs per day and how to titrate this. He is requesting a shower. He feels well enough to return to the [place] [facility]. Denies other issues at this time. Tolerating PO Review of Systems Review of Systems: All systems reviewed & are unremarkable except as noted in Subjective Physical Exam Physical Exam: CONSTITUTIONAL: WNWD, vitals as above, generally well- appearing EYES: normal conjunctivae, no scleral icterus ENT: external ear and nose normal, MMM RESPIRATORY: clear to auscultation bilaterally, no crackles, rales or wheezes, normal respiratory effort CARDIOVASCULAR: regular rate and rhythm, S1 and 2 heard without murmurs, gallops or rubs, no JVD, no peripheral edema GASTROINTESTINAL: normal bowel sounds, soft, nontender, nondistended MUSCULOSKELETAL: strength 5/5 throughout, head is normocephalic and atraumatic SKIN: warm and dry NEUROLOGIC: CN 2-12 grossly intact, no sensory deficit, normal cognition, normal speech, no tremor PSYCHIATRIC: alert cooperative and oriented to person, place and time. Results & Data ([facility]) Vital Signs (Past 12 Hours) Vital Signs Temp Pulse Resp BP Pulse Ox 08/10/19 15:04 37.0 C 90 17 154/94 H 97 08/10/19 07:52 36.6 C 79 15 143/96 H 97 Laboratory Results Short CBC 08/10/19 Range/Units 07:09 WBC 3.30 L (4.8-10.8) K/uL Hgb 12.3 L (14.0-18.0) g/dL Hct 34.6 L (42-52) % Plt Count 32 L (130-400) K/uL BMP 08/10/19 07:09 Sodium 135 L Potassium 4.0 Chloride 108 H Carbon Dioxide 22 BUN 19 H Creatinine 0.85 Glucose 101 H Calcium 8.3 L Liver Function 08/10/19 Range/Units 07:09 Total Bilirubin 1.3 H (0.2-1) mg/dl AST 26 (15-37) U/L ALT 29 (12-78) U/L Alkaline Phosphatase 92 (45-117) U/L Albumin 2.8 L (3.4-5.0) gm/dl Medications Administered Current Inpatient Medications Calcium Carbonate (Tums) 500 mg PO BID PRN PRN Reason: Heartburn Stop: 09/08/19 13:19 Furosemide (Lasix) [facility] Stop: 09/08/19 08:59 Last Admin: 08/10/19 09:24 Dose: 40 mg Documented by: Hydroxyzine HCl (Vistaril) 25 mg PO TID PRN PRN Reason: Itching Stop: 09/08/19 13:19 Lactulose (Chronulac) 30 gm PO QID COUNT INCLUDES THE [facility] Stop: 09/08/19 12:59 Last Admin: 08/10/19 16:44 Dose: Not Given Documented by: Ondansetron HCl (Zofran) 4 mg IV Q6H PRN PRN Reason: Nausea Stop: 09/07/19 13:46 Pantoprazole Sodium (Protonix) 40 mg PO [facility] Stop: 09/08/19 08:59 Last Admin: 08/10/19 09:23 Dose: 40 mg Documented by: Spironolactone (Aldactone) 100 mg PO [facility] Stop: 09/08/19 08:59 Last Admin: 08/10/19 09:24 Dose: 100 mg Documented by: Tenofovir Alafenamide ([facility]lidy) [facility] Stop: 09/09/19 08:59 Last Admin: 08/10/19 09:24 Dose: 1 ea Documented by: Tramadol HCl (Ultram) 25 mg PO Q4H PRN PRN Reason: Pain Stop: 09/07/19 18:06 Last Admin: 08/08/19 18:56 Dose: 25 mg Documented by: (1) Liver cirrhosis Ascites presence: with ascites Hepatic cirrhosis type: alcoholic cirrhosis Qualified Code(s): K70.31 - Alcoholic cirrhosis of liver with ascites
[2019-08-11] MEDS: FUROSEMIDE 40 MG TAB PO SCH (08:17)
[2019-08-11] MEDS: LACTULOSE SYRUP 30 GM/45 ML UDP PO SCH ×4 (08:17→15:57)
[2019-08-11] MEDS: SPIRONOLACTONE 100 MG TAB PO SCH (08:17)
[2019-08-11] MEDS: PANTOprazole 40 MG TAB PO SCH (08:18)
[2019-08-11 08:25] LABS: Hematocrit (blood only) 34.9 % (42-52); Hemoglobin 12.3 g/dL (14.0-18.0); Mean Corpuscular Hemoglobin 33.4 pg (25-34); Mean Corpuscular Hgb Conc 35.2 g/dL (32-36); Mean Corpuscular Volume 94.8 fL (80-100); RDW Coefficient of Variation 14.3 % (11.5-14.5); RDW Standard Deviation 48.7 fL (36.4-46.3); Red Blood Count 3.68 M/uL (4.7-6.1); White Blood Count 3.49 K/uL (4.8-10.8)
[2019-08-11 08:29] LABS: Mean Platelet Volume 11.4 fL (7.4-10.4); Platelet Count 37 K/uL (130-400)
[2019-08-11 08:41] LABS: BUN Creatinine Ratio 17.4 (10-20); Calcium 8.1 mg/dl (8.5-10.1); Creatinine Clr Calc Pharmacy 113.1 ml/min; Est GFR (African American) 119.4; Est GFR (Non-African American) 103.1; Magnesium 1.5 mg/dl (1.8-2.4); Potassium 3.9 mmol/L (3.5-5.1)
[2019-08-11] MEDS ORDERED: MAGNESIUM OXIDE 400 MG TAB PO SCH (09:00)
[2019-08-11] MEDS: MAGNESIUM SULFATE / D5W 1 GM/100 ML BAG IV SCH ×2 (10:05→11:17)
--- NOTE | 2019-08-11 14:19 | Discharge Summary ---
Date of Service August 11, 2019 Admission HPI Per Admitting Provider Pt is 53 y/o M with PMH hepatitis C, Hepatitis B, cirrhosis, HTN, chronic thrombocytopenia presented to ER from [facility] for confusion. Patient reports history of intermittent confusion and elevated ammonia levels over the past month and reports has been on lactulose with some improvement. Patient reports has two BMs daily. He reports that he seemed to have more confusion the past couple of days. It is reported the patient with trouble with word finding and slurred speech this a.m. approximately 8 AM and had reported BP of 190/130 and was given Lopressor 25 mg p.o. at the nursing home. Upon ER arrival it was noted patient had some slowed answering to questions however reports that seems to have improved during his time in ER. Pt c/o frontal PIZANO for weeks with some nasal congestion. Denies any increased PIZANO. Patient reports has had dizziness with walking and staggered gait as well as blurry vision for several months. He reports chronic paresthesias bilateral feet for years. Also reports chronic intermittent epistaxis. Denies any chest pain, shortness of breath. Reports chronic abdominal distention and BLE edema. He feels like his abdominal distention may be slightly less since being on diuretics. Patient was on Epclusa he reports for 12 week course and finished approximately 4 weeks ago. Currently on Vemlidy. History cocaine use, reports last used 14 years ago. Denies history of IV drug abuse. Has tattoos. Patient reports female sexual partner in past had hepatitis C. Denies fever/chills, diaphoresis, N/V/C, syncope, neck pain, orthopnea, palpitations, cough, sore throat, choking, ot algia, extremity weakness, rashes, urinary symptoms. Admission Exam Per Admitting Provider General: no acute distress, WDWN Head: normocephalic, atraumatic Eyes: PERRL, EOM's intact, conjunctiva non-injected, anicteric ENT: normal inspection external ears, nose, mucous membranes moist Neck: supple, trachea midline Lungs: clear, no respiratory distress, no wheezing/rhonchi/rales CV: RRR, no murmur, 1+ pretibial edema Abd: normal BS, soft, distended, non-tender to palpation Ext: no cyanosis, no calf tenderness; +mild asterixis Neuro: A&O x 3, normal affect, no slurred speech, some intermittent slowed responses to remembering his medications, Facial sensation is intact and symmetric, face is strong and symmetric, Hearing grossly intact, Soft palate elevates symmetrically, Shoulder shrug intact, Tongue is midline, normal movement, no fasciculations, strength 5/5 throughout, slow finger to nose testing Skin: warm, dry Principal Diagnosis Hepatic encephalopathy Chronic hepatitis B and C Cirrhosis of the liver Chronic thrombocytopenia Discharge Data Allergies Allergy/AdvReac Type Severity Reaction Status Date / Time NSAIDS (Non-Steroidal AdvReac Unknown Unknown Unverified 08/08/19 08:35 Anti-Inflamma Consultations 08/08/19 10:25 ED Decision to Admit Stat 08/08/19 13:47 Consult Case Management - Discharge Planning Routine Ordered Studies 08/08/19 08:34 CT head/brain wo con Stat 08/08/19 13:47 MR brain wo con Routine US abdomen ltd ascites Routine Hospital Course (1) Hepatic encephalopathy: (2) Liver cirrhosis: (3) Hepatitis C virus: (4) Thrombocytopenia: 53-year-old inmate was admitted to the Hospitalist service with confusion. He had a history of elevated ammonia levels over the past month and was reported to be on lactulose with some improvement. The patient also seemed to have trouble with word finding and slurred speech, however, upon arrival to the ER this was improved. The patient had recently finished a 12-week course of antiviral therapy for hepatitis C. On the floor, lactulose was continued in addition to his home Lasix and Spironolactone. Work-up of confusion included a head CT without contrast revealing no evidence of hemorrhage mass effect or evidence of acute territorial ischemia. A chest x-ray revealed no acute cardiopulmonary disease. An abdominal ultrasound revealed no evidence of ascites. Finally a brain MRI revealed no evidence of acute intracranial findings with mild white matter intensities suggesting small vessel disease. His ammonia was repeated and improved and he was clear mentally for at least the last 2 days of his hospital stay. Electrolytes were within normal limits except for magnesium which was replaced. His confusion ultimately was felt to be secondary to hepatic encephalopathy and continued lactulose was recommended titrated to 2-3 bowel movements daily. Magnesium supplements were started which may be related to Protonix use. At time of discharge she was hemodynamically stable and afebrile and tolerating p.o. He was mentating and ambulating at baseline and oxygenating well on air room air. He was discharged in stable condition with close primary care follow-up recommended. Total Time Total Time Spent Total Time Spent (In Minutes): 60 Discharge Plan Discharge Items [facility] Disposition[facility] Reason For Visit: CONFUSION Discharge Diagnosis: Hepatic encephalopathy Chronic hepatitis B and C Cirrhosis of the liver Chronic thrombocytopenia Condition on Discharge: Good Activity: Resume your previous activity Non-emergency contact: Primary Care Provider Call non-emergency contact if: you have any medication questions, your symptoms worsen, your pain is not controlled, your pain is worsening, your pain is unusual for you, your pain is concerning for you and you have a fever Follow-up/Referrals: Sumit WALL [Primary Care Provider] - Diet: Low Sodium (2gm) Addtl Attending Provider Instructions: Please take all medications as instructed on discharge list below. You are being placed on magnesium supplements as this was found to be slightly low while you were in the hospital, which may be related to your Protonix use. Please continue to take Lactulose twice daily or as much as you need to achieve 2-3 bowel movements daily. This will help to keep your ammonia levels low as the liver is unable to get rid of this as well now. If the ammonia builds up in your system, it may make you confused or fatigued. If you experience these sy mptoms, please seek out medical attention. It was a pleasure taking care of you! Please call if you have any questions or problems. You can reach a [facility] hospitalist on duty at [facility] 24 hours a day by calling [phone]. Take care of yourself. Kaity Rangel, DO [facility] Pending Studies at Discharge: No Stand-Alone Forms: My [facility] Skilled Items Patient informed of condition?: Yes Discharge Level of Care: Other Communicable Disease: No Discharge Prognosis: Stable Lines: None Urinary Catheter: No Medications and DC Order Prescriptions: New magnesium oxide 400 mg (241.3 mg magnesium) Tablet 400 mg PO BID Qty: 60 RF: 1 Continued furosemide [Lasix] 40 mg Tablet 40 mg PO QAM RF: 0 spironolactone 100 mg Tablet 100 mg PO QAM RF: 0 pantoprazole 40 mg Tablet,Delayed Release (Dr/Ec) 40 mg PO QAM RF: 0 calcium carbonate [Tums] 200 mg calcium (500 mg) Tablet,Chewable 400 mg PO BID PRN (Reason: Heartburn) RF: 0 hydroxyzine HCl 25 mg Tablet 25 mg PO TID PRN (Reason: Itching) RF: 0 lactulose 20 gram/30 mL Solution 20 g PO BID RF: 0 Vemlidy 25 mg Tablet 25 mg PO QAM RF: 0 Discharge Orders: Discharge Order (Routine); Ordered 08/11/19 Ordered By: Kaity Maynard/Other Patient Handouts: Liver, Liver Disease Common Tests, Thrombocytopenia, Hepatitis C, Hepatitis B, Anatomy Brain, Hernia How Develops, ED Ascites, ED Confusion Admission Data Admit Date/Time: 08/09/19 13:12 Attending Provider: Kaity Rangel Admit Provider: Lyssa Cullen Primary Care Provider: Sumit WALL Other Providers: Lyssa Cullen Other Interventions: Discharge Summary Assessment (RN) Last Done: 08/11/19 16:01 DC Date/Time DO NOT enter until pt leaves facility: 08/11/19 17:53
[2019-08-11 15:48] VITALS: TEMP 99.1; O2SAT 96
[2019-08-11 16:04] VITALS: BP 122/78; PULSE 73
== END 2019-08-11 17:53 | DRG 442 ==
LOC: ED 08:03 → 2W 08:03 → SUATTDRO 11:04 → 2W 11:31 → SUATTDRO 08-09 13:12 → 3N 08-10 00:56